=== PATIENT | female | born 1985 | race Caucasian/White ===

== ENCOUNTER 2019-06-10 15:01 | Emergency (ER) | payer BC ==
[2019-06-10] MEDS ORDERED: HYDROXYZINE PAMOATE 25 MG CAPSULE PO ONE (15:32)
--- NOTE | 2019-06-10 16:01 | ER Document Report ---
ED Cardiac - General Chief Complaint: Chest Pain Stated Complaint: CHEST PAIN Time Seen by Provider: 06/10/19 15:06 Primary Care Provider: DIANE MALDONADO MD [NO LOCAL MD] - Follow up as needed HANS MAZA FNP [NURSE PRACTITIONER] - Follow up in 1 week KESHAWN EID MD [ACTIVE STAFF] - Follow up as needed Notes: Patient is a 33-year-old female presents emergency department with a chief complaint of chest pain started 2 weeks ago. She also reports body aches and chills. Patient states that she has had increased shortness of breath over the past 3 days and. She states that she thought it was going to get better, but it did not. Patient ended up calling telemedicine and was instructed to come here to the emergency department. Patient denies any fever or shortness of breath. Patient denies any contact with anybody who has tested positive for COVID 19. States that she has been in her house and trying her best not to go out. She does report some anxiety, but does not take any medication for it. She also thinks that she may have allergies, but does not take any medications. She has also been states that she has a history of gastritis. Does not take any medications for this. - Related Data Allergies/Adverse Reactions: hydromorphone [From Dilaudid] Allergy (Verified 06/10/19 15:17) Past Medical History - General Information source: Patient - Social History Smoking Status: Never Smoker Frequency of alcohol use: Rare Drug Abuse: None Family History: Reviewed & Not Pertinent Patient has suicidal ideation: No Patient has homicidal ideation: No Past Surgical History: Reports: Hx Appendectomy, Hx Cholecystectomy Review of Systems - Review of Systems Notes: REVIEW OF SYSTEMS: CONSTITUTIONAL : Denies recent illness. Denies recent unintentional weight loss. Denies fever, chills, or sweats. EENT: Denies eye, ear, throat, or mouth pain, discharge, or symptoms. Denies nasal or sinus congestion. CARDIOVASCULAR: HPI. RESPIRATORY: See HPI. GASTROINTESTINAL: Denies nausea, vomiting, and diarrhea. Denies abdominal pain. Denies constipation. GENITOURINARY: Denies difficulty urinating, burning, blood in urine, urgency or frequency. MUSCULOSKELETAL: Denies neck and back pain. Denies joint pain or swelling. SKIN: Denies rash, itchiness, or lesions HEMATOLOGIC : Denies easy bruising or bleeding. LYMPHATIC: Denies swollen, painful, enlarged glands. NEUROLOGICAL: Denies no numbness or tingling denies weakness. Denies headache. Denies altered mental status. Denies alteration in speech. PSYCHIATRIC: Denies stress, anxiety, alteration in sleep patterns, or depression. All other systems reviewed and negative. Physical Exam - Vital signs Vitals: Temp Pulse Resp BP Pulse Ox 98.0 F 101 H 20 140/89 H 100 06/10/19 15:06/10/19 15:06/10/19 15:06/10/19 15:06/10/19 15:01 - Notes Notes: PHYSICAL EXAMINATION: GENERAL: Appears well, healthy, well-nourished, no acute distress. HEAD: Normocephalic, atraumatic. EYES: PERRL, conjunctiva normal, all extraocular movements intact, sclera nonicteric ENT: Moist mucous membranes. NECK: Supple, no noticeable swelling, redness, rash. Normal range of motion. LUNGS: Equal breath sounds bilaterally and clear to auscultation. No wheezes rales or rhonchi. CARDIOVASCULAR: S1-S2, regular rate, regular rhythm. Radial pulses 2+, normal. ABDOMEN: Normoactive bowel sounds. Soft, nontender, no guarding, no rebound tenderness, and no masses palpated. EXTREMITIES: Normal strength and range of motion, no pitting or edema. No cyanosis. NEUROLOGICAL: Moves all extremities upon command. Strength 5/5 in all extremities. PSYCH: Normal mood, normal affect. SKIN: Warm, dry. No rash, lesions, ulcerations noted. Normal skin turgor. Course - Re-evaluation Re-evalutation: 06/10/19 18:01 Hematology is unremarkable. Chemistries are also unremarkable. Serum hCG is negative and CK is normal. TSH is are normal. I suspect the patient most likely has anxiety. Patient has a small amount of blood in her urine, but this is because she is currently on her menstrual cycle. Chest x-ray is normal. I suspect the patient is having a great deal of anxiety causing her to have her chest pain. I will have her follow-up with a sewer pipe sorter due to having history of "heart problems." Patient will be referred to a primary care provider and a sewer pipe sorter. Patient will be started on Vistaril for her anxiety. - Vital Signs Vital signs: Temp Pulse Resp BP Pulse Ox 98.0 F 89 18 125/85 98 06/10/19 18:40 06/10/19 18:40 06/10/19 18:40 06/10/19 18:40 06/10/19 18:40 - Laboratory Result Diagrams: 06/10/19 15:48 06/10/19 15:48 Laboratory results interpreted by me: 06/10/19 06/10/19 15:48 17:30 Plt Count 147 L Urine Blood SMALL H - EKG Interpretation by Me Additional EKG results interpreted by me: 06/10/19 Sinus tachycardia. Rate 102. WV 144; QRS 70; QT 324; QTc 423. No ST elevations or depressions. No other previous EKG for comparison. Discharge - Discharge Clinical Impression: Chest pain Qualifiers: Chest pain type: unspecified Qualified Code(s): R07.9 - Chest pain, unspecified Condition: Stable Disposition: HOME, SELF-CARE Additional Instructions: You were seen today for chest pain. The exact cause of your pain is unclear. However, based on your labs, chest x-ray, and EKG it does not appear that it is from an immediately life-threatening cause at this time. Although your testing here is normal is critical that you follow-up with a primary care physician for continued evaluation of this chest pain. You are also being sent home with Vistaril, medication for anxiety. Please return to emergency department immediately if you have worsening of your chest pain, shortness of breath, vomiting, become unable to exert yourself due to pain or difficulty breathing, you pass out, or have any pain that radiates into your arms, jaw, or back. Please also return if you have any additional symptoms that are concerning to you. Please start Zyrtec and Pepcid to help with your symptoms. You can take the hydroxyzine at nighttime as needed. Prescriptions: Hydroxyzine Pamoate [Vistaril 50 mg Capsule] 50 mg PO QHS #30 capsule Famotidine [Pepcid 20 mg Tablet] 40 mg PO DAILY #60 tablet Cetirizine HCl [Zyrtec 10 mg Tablet] 10 mg PO DAILY #30 tablet Referrals: HANS MAZA FNP [NURSE PRACTITIONER] - Follow up in 1 week KESHAWN EID MD [ACTIVE STAFF] - Follow up as needed DIANE MALDONADO MD [NO LOCAL MD] - Follow up as needed
[2019-06-10 16:03] LABS: ABSOLUTE EOSINOPHILS # (AUTO) 0.1 10^3/uL (0.0-0.6); ABSOLUTE LYMPHOCYTES (AUTO) 1.2 10^3/uL (0.5-4.7); ABSOLUTE MONOCYTES (AUTO) 0.3 10^3/uL (0.1-1.4); ABSOLUTE NEUT (AUTO) 5.8 10^3/uL (1.7-8.2); BASOPHILS % (AUTO) 0.7 % (0-2); EOSINOPHILS % (AUTO) 1.1 % (0-6); HEMATOCRIT 44.5 % (36.0-47.0); HEMOGLOBIN 15.3 g/dL (12.0-15.5); LYMPHOCYTES % (AUTO) 16.2 % (13-45); MEAN CORPUSCULAR HEMOGLOBIN 30.7 pg (27.0-33.4); MEAN CORPUSCULAR HGB CONC 34.3 g/dL (32.0-36.0); MEAN CORPUSCULAR VOLUME 90 fl (80-97); MONOCYTES % (AUTO) 4.4 % (3-13); PLATELET COUNT 147 10^3/uL (150-450); RED BLOOD COUNT 4.97 10^6/uL (3.72-5.28); RED CELL DISTRIBUTION WIDTH 12.7 % (11.5-14.0); SEGMENTED NEUTROPHILS % (AUTO) 77.6 % (42-78); TOTAL CELLS COUNTED % (AUTO) 100 %; WHITE BLOOD COUNT 7.4 10^3/uL (4.0-10.5)
[2019-06-10 16:22] LABS: ALBUMIN 4.9 g/dL (3.5-5.0); ALKALINE PHOSPHATASE 66 U/L (38-126); ANION GAP 8 (5-19); ASPARTATE AMINO TRANSFERASE 21 U/L (14-36); BILIRUBIN,TOTAL 1.2 mg/dL (0.2-1.3); BLOOD UREA NITROGEN 12 mg/dL (7-20); CALCIUM 9.9 mg/dL (8.4-10.2); CARBON DIOXIDE 26 mmol/L (22-30); CHLORIDE 105 mmol/L (98-107); GLUCOSE 102 mg/dL (75-110); POTASSIUM 4.2 mmol/L (3.6-5.0); TOTAL PROTEIN 8.1 g/dL (6.3-8.2)
--- NOTE | 2019-06-10 17:00 | RADIOLOGY REPORT (SQ) ---
EXAM DESCRIPTION: CHEST SINGLE VIEW IMAGES COMPLETED DATE/TIME: 06/10/2019 3:26 pm REASON FOR STUDY: chest pain COMPARISON: None. EXAM PARAMETERS: NUMBER OF VIEWS: One view. TECHNIQUE: Single frontal radiographic view of the chest acquired. RADIATION DOSE: NA LIMITATIONS: None. FINDINGS: LUNGS AND PLEURA: No opacities, masses or pneumothorax. No pleural effusion. MEDIASTINUM AND HILAR STRUCTURES: No masses. Contour normal. HEART AND VASCULAR STRUCTURES: Heart normal in size. Normal vasculature. BONES: No acute findings. HARDWARE: None in the chest. OTHER: No other significant finding. IMPRESSION: NO ACUTE RADIOGRAPHIC FINDING IN THE CHEST. TECHNICAL DOCUMENTATION: JOB ID: [id number] 2010 [employer]- All Rights Reserved Reading location - IP/workstation name: [email or web address]
[2019-06-10 17:26] LABS: FREE T3 4.26 pg/mL (2.77-5.27); FREE T4 (FREE THYROXINE) 1.1 ng/dL (0.78-2.19)
[2019-06-10] MEDS ORDERED: ACETAMINOPHEN 325 MG TABLET PO ONE (17:33)
[2019-06-10] MEDS ORDERED: IBUPROFEN 600 MG TABLET PO ONE (17:34)
[2019-06-10 17:40] LABS: THYROID STIMULATING HORMONE 0.96 uIU/mL (0.47-4.68)
[2019-06-10 17:53] LABS: APPEARANCE,URINE CLEAR; BILIRUBIN,URINE NEGATIVE (NEGATIVE); COLOR,URINE STRAW; GLUCOSE, URINE NEGATIVE (NEGATIVE); KETONES,URINE NEGATIVE (NEGATIVE); LEUKOCYTE ESTERASE,URINE NEGATIVE (NEGATIVE); NITRITE,URINE NEGATIVE (NEGATIVE); PROTEIN,URINE NEGATIVE (NEGATIVE); URINE SPECIFIC GRAVITY 1.005; UROBILINOGEN,URINE NEGATIVE mg/dL (<2.0)
[2019-06-10 18:42] VITALS: BP 125/85
--- NOTE | 2019-06-11 16:52 | EKG REPORT ---
SEVERITY:- OTHERWISE NORMAL ECG - SINUS TACHYCARDIA : Confirmed by: Kari Diane 11-Jun-2019 16:52:17
== END 2019-06-10 18:42 | disposition home or self-care (01) ==
LOC: ER 15:01
DX: R07.9 Chest pain, unspecified (principal); R68.83 Chills (without fever); F41.9 Anxiety disorder, unspecified; Z88.6 Allergy status to analgesic agent; Z88.5 Allergy status to narcotic agent
CPT/HCPCS: 36415; 71045; 80053; 81001; 82550; 83690; 84439; 84443; 84481; 84703; 85025; 93005; 93010; 99285